=== PATIENT | male | born 1990 | race Caucasian/White ===

== ENCOUNTER 2022-04-24 10:16 | Emergency (ER) | payer BC ==
[2022-04-24] MEDS ORDERED: Sodium Chloride 0.9% 10 ML Syringe FLUSH PRN (13:32)
[2022-04-24 20:57] VITALS: BP 116/68; PULSE 75
== END 2022-04-24 14:13 ==
LOC: LL.ED 10:16
DX: J39.8 Other specified diseases of upper respiratory tract (principal); Z91.041 Radiographic dye allergy status
CPT/HCPCS: 70490; 99284